=== PATIENT | male | born 1955 | race Caucasian/White ===

== ENCOUNTER 2017-04-08 06:09 | Inpatient (IN) | payer MEDICARE, MEDICAID ==
[2017-04-07 09:56] LABS: Basophils # (auto) 0.1 uL; CONDITION Y; Eosinophils # (auto) 0 uL; Eosinophils % (auto) 0.6 % (0.0-7.0); Hematocrit 42.7 % (41.0-53.0); Lymphocytes # (auto) 1.3 uL; Lymphocytes % (auto) 18.1 % (10.0-50.0); Mean Corpuscular Hemoglobin 28.4 pg (28.0-32.0); Mean Corpuscular Hgb Conc. 32.8 g/dL (32.0-36.0); Mean Corpuscular Volume 86.8 fL (80.0-100.0); Mean Platelet Volume 7.4 fL (7.4-10.4); Monocytes # (auto) 0.6 uL; Monocytes % (auto) 8.3 % (0.0-12.0); Neutrophils # (auto) 5.3 uL; Platelet Count (auto) 237 10^3/uL (140-450); Red Cell Distribution Width 14.4 % (11.6-16.0); White Blood Cell 7.4 10^3/uL (4.4-10.8)
[2017-04-07 10:04] LABS: Urine Bilirubin Negative (Negative); Urine Blood TRACE /uL (Negative); Urine Color Yellow (Yellow); Urine Ketone Negative (Negative); Urine Nitrite Negative (Negative); Urine RBC <1 /hpf (0 - 3); Urine Urobilinogen Normal (Negative)
[2017-04-07 10:05] LABS: Urine Glucose 2+ mg/dL (Normal)
[2017-04-07 10:17] LABS: INR 1.01 (0.9-1.15); Partial Thromboplastin Time 25.7 sec (22.64-33.71)
[2017-04-07 10:39] LABS: Albumin 3.6 g/dL (3.4-5.0); BUN/Creatinine Ratio 9.5; Bilirubin, Total 0.3 mg/dL (0.2-1.0); Calcium 8.4 mg/dL (8.5-10.1); Potassium 5.3 mmol/L (3.5-5.1); Total Protein 7.1 g/dL (6.4-8.2)
[~2017-04-08] VITALS: Ht 188 cm; Wt 126.0 kg
[~2017-04-08 06:09] MED LIST: AMLO10TA2 PO; ATOR20TA50 PO; B-CO-5 OR; CALC667T2 PO; FURO80TA3 PO; INSUINJ37 SUBCUT; INSUINJ47 SC; METO-158 PO
[2017-04-08] MEDS ORDERED: ceFAZolin 1GM/50ML D5W 50 ML IV ONE (06:59)
[2017-04-08] MEDS ORDERED: BUPIVACAINE 0.75% INJ 10ML MPV SDV IJ ONE ×2 (07:04→08:14)
[2017-04-08] MEDS ORDERED: ceFAZolin 1GM VL ONE (07:04)
[2017-04-08] MEDS ORDERED: ONDANSETRON HCL 4 MG/2 ML VIAL IV PRN (12:15)
[2017-04-08] MEDS ORDERED: NITROGLYCERIN 0.4 MG SL TAB SL PRN (12:15)
[2017-04-08] MEDS ORDERED: MORPHINE SULF INJ 2 MG/ML SYRINGE 1ML IV PRN ×2 (12:15)
[2017-04-08] MEDS ORDERED: DEXTROSE (50%) 50ML SYRG IV PRN (12:15)
[2017-04-08] MEDS ORDERED: HYDROcodone-ACET 5/325MG TAB PO PRN (12:15)
[2017-04-08] MEDS ORDERED: MORPHINE SULFATE 4 MG/ML SYRG IV PRN ×2 (14:12→14:13)
[2017-04-08] MEDS ORDERED: SODIUM CHL 0.9% 1000 ML BAG XX ONE (16:45)
[2017-04-08] MEDS: CALCIUM ACETATE 667 MG CAP PO SCH (18:24)
[2017-04-08] MEDS: ACCU-CHEK COMFORT CURVE STRIP VI SCH (18:25)
[2017-04-08] MEDS: InsuLIN REG 1unit/0.01ml Soln (100units/ml) SC SCH (18:25)
[2017-04-08 22:03] VITALS: BP 103/59
[2017-04-09 05:20] VITALS: BP 135/77
[2017-04-09] MEDS: ACCU-CHEK COMFORT CURVE STRIP VI SCH ×2 (06:00)
[2017-04-09] MEDS: InsuLIN REG 1unit/0.01ml Soln (100units/ml) SC SCH ×3 (06:00→12:00)
[2017-04-09 07:03] LABS: Calcium 8.2 mg/dL (8.5-10.1); Potassium 4.3 mmol/L (3.5-5.1)
[2017-04-09 07:05] LABS: BUN/Creatinine Ratio 10.7
[2017-04-09 08:00] VITALS: BP 135/77
[2017-04-09] MEDS: CALCIUM ACETATE 667 MG CAP PO SCH (08:00)
[2017-04-09 09:00] VITALS: BP 131/86
[2017-04-09] MEDS ORDERED: NEOMYCIN-BACITRACIN-POLYM 15GM TOP OINT TOP ONE (09:44)
[2017-04-09] MEDS ORDERED: BUPIVACAINE 0.75% INJ 10ML MPV SDV IJ ONE (09:44)
[2017-04-09] MEDS ORDERED: amLODIPine BESYLATE 5 MG TAB PO SCH (10:00)
[2017-04-09] MEDS ORDERED: METOPROLOL SUCCINATE XL 50 MG TAB PO SCH (10:00)
[2017-04-09] MEDS ORDERED: ceFAZolin 1GM/50ML D5W 50 ML IV ONE (10:08)
[2017-04-09] MEDS ORDERED: ceFAZolin 1GM VL ONE (10:32)
[2017-04-09] MEDS ORDERED: fentaNYL CITRATE 100 MCG/2 ML VL ONE (10:41)
[2017-04-09] MEDS ORDERED: MIDAZOLAM HCL 1MG/1ML-2 ML VIAL ONE (10:41)
[2017-04-09] MEDS ORDERED: PROPOFOL 10 MG/ML 20 ML IV ONE ×2 (10:42→11:36)
[2017-04-09] MEDS ORDERED: ONDANSETRON HCL 4 MG/2 ML VIAL ONE (10:42)
[2017-04-09] MEDS ORDERED: ACCU-CHEK COMFORT CURVE STRIP VI ONE (11:30)
[2017-04-09] MEDS ORDERED: METOCLOPRAMIDE HCL 5MG/ml INJ 2ml VIAL IV ONE (11:30)
[2017-04-09] MEDS ORDERED: HYDROmorphone HCL 2 MG/ML VL IV PRN (11:30)
[2017-04-09 14:54] VITALS: BP 136/72
[2017-04-09 15:18] VITALS: BP 136/72
[2017-04-09 17:10] VITALS: BP 141/75
== END 2017-04-09 15:30 | disposition home or self-care (01) | DRG 500 ==
LOC: SUR 06:09 → TELE-E-ADS 06:10 → TELE-WESTW 19:18
PROVIDERS: ADMIT Podiatrist Foot & Ankle Surgery; ATTEND Internal Medicine
PROC: 0SRM0JZ Replacement of Right Metatarsal-Phalangeal Joint with Synthetic Substitute, Open Approach (ICD-10-PCS; 2017-04-09)
PROC: 0L8V0ZZ Division of Right Foot Tendon, Open Approach (ICD-10-PCS; principal; 2017-04-09 10:55)
DX: M21.611 Bunion of right foot (principal); N18.6 End stage renal disease; I12.0 Hypertensive chronic kidney disease with stage 5 chronic kidney disease or end stage renal disease; E87.5 Hyperkalemia; M19.90 Unspecified osteoarthritis, unspecified site; Z83.3 Family history of diabetes mellitus; M15.4 Erosive (osteo)arthritis; E11.22 Type 2 diabetes mellitus with diabetic chronic kidney disease
CPT/HCPCS: 36415; 80048; 80053; 81001; 82962; 84132; 85025; 85610; 85730; 87081; 90935; C1781; J0690; J1815; J2250; J2405; J2704; J3490